=== PATIENT | male | born 1940 | race Two or more races ===

== ENCOUNTER 2016-10-16 13:03 | Emergency (ER) | payer BC, MEDICAID ==
[~2016-10-16] VITALS: Ht 149.9 cm; Wt 65.8 kg
[~2016-10-16 13:03] MED LIST: ALBUAER3 IN; AMLO5TAB2 PO; ASPI81TA27 PO; Atorvastatin Calcium PO; CAR3125T PO; DIPH25CA6 PO; FLUT250M2 INH; GABA300C8 PO; LORA-622 PO; MONT10TA34 PO; PRED-188 PO; RANI-226 PO
[2016-10-16 13:32] VITALS: BP 122/83
[2016-10-16 14:36] LABS: Basophils # (auto) 0 uL; Basophils % (auto) 0.4 % (0.0-2.0); Eosinophils # (auto) 0.1 uL; Eosinophils % (auto) 1.1 % (0.0-7.0); Hematocrit 42.7 % (41.0-53.0); Hemoglobin 14.2 g/dL (13.5-17.5); Lymphocytes # (auto) 1.4 uL; Lymphocytes % (auto) 19.6 % (10.0-50.0); Mean Corpuscular Hemoglobin 30.5 pg (28.0-32.0); Mean Corpuscular Hgb Conc. 33.2 g/dL (32.0-36.0); Mean Corpuscular Volume 91.8 fL (80.0-100.0); Mean Platelet Volume 7.6 fL (7.4-10.4); Monocytes # (auto) 0.4 uL; Monocytes % (auto) 6.1 % (0.0-12.0); Neutrophils % (auto) 72.8 % (37.0-80.0); Platelet Count (auto) 287 10^3/uL (140-450); Red Cell Distribution Width 13.9 % (11.6-16.0); White Blood Cell 6.9 10^3/uL (4.4-10.8)
[2016-10-16 14:53] LABS: Albumin 3.4 g/dL (3.4-5.0); Anion Gap 10 (5-15); Blood Urea Nitrogen 19 mg/dL (7-18); Calcium 8.5 mg/dL (8.5-10.1); Carbon Dioxide 27 mmol/L (21-32); Chloride 106 mmol/L (98-107); Glucose 101 mg/dL (74-106); Potassium 3.8 mmol/L (3.5-5.1); Sodium 143 mmol/L (136-145)
[2016-10-16 14:55] LABS: Aspartate Aminotransferase 27 U/L (15-37); BUN/Creatinine Ratio 20.2; GFR African American 100 mL/min; GFR Non-African American 82 mL/min
[2016-10-16 15:00] LABS: Alkaline Phosphatase 80 U/L (45-117); Bilirubin, Total 0.9 mg/dL (0.2-1.0); Total Protein 8.5 g/dL (6.4-8.2)
== END 2016-10-16 18:31 | disposition left against medical advice (07) ==
LOC: ER 13:03
DX: R40.1 Stupor (principal); Z53.21 Procedure and treatment not carried out due to patient leaving prior to being seen by health care provider
CPT/HCPCS: 36415; 70450; 71020; 80053; 80320; 83735; 84484; 85025; 93005